=== PATIENT | female | born 1990 | race Two or more races ===

== ENCOUNTER 2024-02-22 02:30 | Inpatient (IN) | payer OTHER ==
[~2024-02-22] VITALS: Ht 152.4 cm; Wt 61.7 kg
[2024-02-22 01:40] VITALS: BP 113/76
[2024-02-22] MEDS ORDERED: MAGNESIUM SULFATE IN WATER 4 GM/100 ML PIGGYBACK IV SCH (02:45)
[2024-02-22] MEDS ORDERED: RINGERS SOLUTION,LACTATED 1,000 ML IV SCH (02:45)
[2024-02-22] MEDS ORDERED: MAGNESIUM SULFATE IN WATER 500 ML IV SCH (02:45)
[2024-02-22 02:52] LABS: PH,URINE 5.5 (5.0-8.0); URINE APPEARANCE Clear; URINE BILIRRUBIN Negative (NEGATIVE); URINE BLOOD Small; URINE COLOR Yellow; URINE GLUCOSE Negative (NEGATIVE); URINE KETONE Negative (NEGATIVE); URINE LEUKOCYTE Trace; URINE NITRATE Negative; URINE PROTEIN Negative (NEGATIVE); URINE UROBILINOGEN 0.2 E.U./dl
[2024-02-22 02:56] LABS: HEMATOCRIT 33.8 % (36.0-45.00); RED BLOOD COUNT 3.75 M/uL (4.00-6.00); RED CELL DISTRIBUTION WIDTH 13.3 % (11.5-14.5); URINE BACTERIA 912.7 uL (0.0-1933); URINE EPITHELIAL CELLS 9.3 uL (0.0-38.8); URINE WBC 19.1 uL (0.0-23.2)
[2024-02-22 03:12] LABS: URINE RBC 1.1 uL (0.0-20.8)
[2024-02-22 03:13] LABS: HEMOGLOBIN 11.8 g/dL (12.0-15.00); MEAN CORPUSCULAR HEMOGLOBIN 31.4 pg (27.00-32.0); PLATELET COUNT 116 K/uL (150-450)
[2024-02-22] MEDS ORDERED: BETAMETHASONE ACETATE,SOD PHOS 30 MG/5 ML ML IM ONE (03:15)
[2024-02-22 03:21] LABS: INR 0.94; PARTIAL THROMBOPLASTIN TIME 24.6 SECONDS (22.0-34.0); PROTHROMBIN TIME 10.3 SECONDS (9.0-11.5)
[2024-02-22 03:25] LABS: ALBUMIN 2.6 gm/dL (3.4-5.0); BILIRUBIN TOTAL 0.39 mg/dL (0.3-1.2); CALCIUM 9.3 mg/dL (8.5-10.1); GFR 155.5; GLOBULINA 3.5 G/DL (2.4-3.5); TOTAL PROTEIN 6.1 gm/dL (6.4-8.2)
[2024-02-22] MEDS ORDERED: CHILDREN'S ASPI81 MG PO (03:34)
[2024-02-22] MEDS ORDERED: SYNTHROID50 MCG PO (03:34)
[2024-02-22 03:35] LABS: CREATININE SERUM 0.46 mg/dL (0.55-1.02)
[2024-02-22] MEDS ORDERED: PRENATAL TABLE1 EAC1 PO (03:35)
[2024-02-22 06:12] VITALS: BP 97/60; O2SAT 97
[2024-02-22] MEDS ORDERED: AMPICILLIN SODIUM 2,000 MG VIAL IV ONE (08:00)
[2024-02-22 11:56] VITALS: BP 99/61; O2SAT 97
[2024-02-22] MEDS ORDERED: AMPICILLIN SODIUM 1,000 MG VIAL IV SCH ×2 (12:00→13:00)
[2024-02-22 15:34] VITALS: BP 109/69
[2024-02-22 19:30] VITALS: BP 95/60
[2024-02-22 23:18] VITALS: BP 99/60
[2024-02-23 04:07] VITALS: BP 98/60
[2024-02-23] MEDS ORDERED: LEVOTHYROXINE 50 MCG PO SCH (06:00)
[2024-02-23 06:16] VITALS: BP 106/61; O2SAT 98
[2024-02-23] MEDS ORDERED: BETAMETHASONE ACETATE,SOD PHOS 30 MG/5 ML ML IM SCH (09:00)
[2024-02-23 12:37] VITALS: BP 106/63; BP 122/75
[2024-02-23 15:36] VITALS: BP 96/52
[2024-02-23] MEDS ORDERED: CEFAZOLIN SODIUM 1,000 MG VIAL IV SCH (16:22)
[2024-02-24 00:33] VITALS: BP 96/56
[2024-02-24] MEDS ORDERED: NIFEDIPINE 60 MG TAB.SA.OSM PO SCH (00:59)
[2024-02-24] MEDS ORDERED: TERBUTALINE SULFATE 1 MG/ML AMPUL SUBCUTANEO ONE (01:00)
[2024-02-24] MEDS ORDERED: NIFEDIPINE ER60 MG PO (07:46)
[2024-02-24 08:56] VITALS: BP 105/62
== END 2024-02-24 11:58 | disposition home or self-care (01) | DRG 833 ==
LOC: LDR 02:30 → OB/GYN 02-23 08:05
PROVIDERS: ADMIT Obstetrics & Gynecology Maternal & Fetal Medicine; ATTEND Obstetrics & Gynecology Maternal & Fetal Medicine
PROC: 4A1HXCZ Monitoring of Products of Conception, Cardiac Rate, External Approach (ICD-10-PCS; principal; 2024-02-22)
DX: O60.03 Preterm labor without delivery, third trimester (principal); Z3A.35 35 weeks gestation of pregnancy; Z20.822 Contact with and (suspected) exposure to COVID-19

== ENCOUNTER 2024-03-03 08:30 | Inpatient (IN) | payer OTHER ==
[~2024-03-03] VITALS: Ht 152.4 cm; Wt 62.6 kg
[~2024-03-03 08:30] MED LIST: CHILDREN'S ASPI81 MG PO; NIFEDIPINE ER60 MG PO; PRENATAL TABLE1 EAC1 PO; SYNTHROID50 MCG PO
[2024-03-12] VITALS (9 sets, daily range): BP systolic 95–123; BP diastolic 56–82; O2SAT 97–100
[2024-03-12 10:22] LABS: HEMATOCRIT 36.6 % (36.0-45.00); HEMOGLOBIN 12.4 g/dL (12.0-15.00); MEAN CELL VOLUME 90.5 fL (80.00-100.00); MEAN CORPUSCULAR HEMOGLOBIN 30.8 pg (27.00-32.0); RED BLOOD COUNT 4.05 M/uL (4.00-6.00); RED CELL DISTRIBUTION WIDTH 13.4 % (11.5-14.5)
[2024-03-12 10:26] LABS: PLATELET COUNT 124 K/uL (150-450)
[2024-03-12 10:40] LABS: INR < 0.93; PARTIAL THROMBOPLASTIN TIME 25.4 SECONDS (22.0-34.0); PROTHROMBIN TIME 10.1 SECONDS (9.0-11.5)
[2024-03-12 11:05] LABS: ALBUMIN 2.4 gm/dL (3.4-5.0); BILIRUBIN TOTAL 0.48 mg/dL (0.3-1.2); CALCIUM 8.9 mg/dL (8.5-10.1); CREATININE SERUM 0.66 mg/dL (0.55-1.02); GFR 102.52; GLOBULINA 3.9 G/DL (2.4-3.5); POTASSIUM 4.22 mEq/L (3.5-5.1); TOTAL PROTEIN 6.3 gm/dL (6.4-8.2)
[2024-03-12] MEDS ORDERED: OXYTOCIN 20 UNITS/1000ML RL PIGGYBAG IV ONE (11:43)
[2024-03-12] MEDS ORDERED: CHLORHEXIDINE GLUCONATE 120 ML BOTTLE TOP ONE (11:43)
[2024-03-12] MEDS ORDERED: LIDOCAINE HCL 1% 10ML VIAL ONE (11:43)
[2024-03-12] MEDS ORDERED: ERYTHROMYCIN BASE OPHT 1GM EACH TUBE OP ONE ×2 (11:43→13:45)
[2024-03-12] MEDS ORDERED: RINGERS SOLUTION,LACTATED 1,000 ML IV SCH (11:45)
[2024-03-12] MEDS ORDERED: CHLORHEXIDINE GLUCONATE 120 ML BOTTLE TP SCH (12:45)
[2024-03-12] MEDS ORDERED: OXYTOCIN 1,000 ML IV SCH (12:45)
[2024-03-12] MEDS ORDERED: OxyCODONE HCL/APAP UD (PERCOCET) PO PRN (12:45)
[2024-03-12] MEDS ORDERED: LIDOCAINE HCL 1% 10ML VIAL IJ ONE ×2 (13:30)
[2024-03-12] MEDS ORDERED: KETOROLAC TROMETHAMINE 10 MG TABLET PO SCH (18:00)
[2024-03-13] MEDS ORDERED: LEVOTHYROXINE SODIUM 50 MCG TABLET PO SCH (06:00)
[2024-03-14 08:00] VITALS: BP 105/68
[2024-03-14] MEDS ORDERED: DOCUSATE CALCIUM 240 MG CAPSULE PO SCH (11:04)
== END 2024-03-14 12:20 | disposition home or self-care (01) | DRG 768 ==
LOC: LDR 03-12 09:52 → OB/GYN 03-12 09:52
PROVIDERS: ADMIT Obstetrics & Gynecology Maternal & Fetal Medicine; ATTEND Obstetrics & Gynecology Maternal & Fetal Medicine
PROC: 10E0XZZ Delivery of Products of Conception, External Approach (ICD-10-PCS; principal; 2024-03-12)
PROC: 0DQR0ZZ Repair Anal Sphincter, Open Approach (ICD-10-PCS; 2024-03-12)
PROC: 0W8NXZZ Division of Female Perineum, External Approach (ICD-10-PCS; 2024-03-12)
PROC: 4A1HXCZ Monitoring of Products of Conception, Cardiac Rate, External Approach (ICD-10-PCS; 2024-03-12)
DX: O70.21 Third degree perineal laceration during delivery, IIIa (principal); Z37.0 Single live birth; Z3A.37 37 weeks gestation of pregnancy; Z20.822 Contact with and (suspected) exposure to COVID-19

== ENCOUNTER 2024-03-10 09:10 | Outpatient (CLI) | payer OTHER | END 2024-03-10 10:03 | disposition home or self-care (01) | LOC: NST 09:10 | PROVIDERS: ATTEND Obstetrics & Gynecology Maternal & Fetal Medicine | DX: Z34.83 Encounter for supervision of other normal pregnancy, third trimester (principal) ==